=== PATIENT | male | born 1985 | race Hispanic/Latino ===

== ENCOUNTER 2016-12-29 09:58 | Emergency (ER) | payer OTHER ==
[~2016-12-29] VITALS: Ht 180.3 cm; Wt 136.1 kg
[~2016-12-29 09:58] MED LIST: NS 1000ML 1,000 ML ONE
--- NOTE | 2016-12-29 10:00 | NUR ---
arrival PATIENT ARRIVED TO [facility] WITH [facility] FROM [facility]. PATIENT WAS ATTEMPTED TO CHANGE CHEMICALS, PER PATIENT A VERY SMALL AMOUNT OF CHEM-AQUA 75084 SPLASHED IN HIS LEFT EYE, HE THEN BEGAN TO FLUSH WITH WATER THEN WAS BROUGHT TO ED FOR FURTHER EVAL, PATIENT DENIES ANY VISUAL DISTURBANCE, VISION IS CLEAR ON ASSESSMENT, JUST REDNESS AND IRRITATION NOTED.
--- NOTE | 2016-12-29 10:10 | NUR ---
EYE MEHDI LENSE PLACED, LEFT EYE BEING IRRIGATED WITH NORMAL SALINE AT THIS TIME, WILL CALL [facility] FOR FURTHER INSTRUCTIONS.
--- NOTE | 2016-12-29 10:16 | ER.PDOC ---
General Chief Complaint: Eye Problems Stated Complaint: CHEMICAL SPLASH TRAVEL OUT OF US: No Time seen by MD: 10:11 Source: patient Exam Limitations: no limitations History of Present Illness Initial Comments splash L eye chemical irrigated with water at sight ns nga lens here Timing/Duration: 1/2 hour Severity: mild Associated Symptoms: denies symptoms Allergies: Coded Allergies: No Known Allergies (Unverified , 12/29/16) Home Meds Unable to Obtain Active Prescriptions or Reported Meds Past Medical History Medical History: hypertension Family History Significant Family History: no pertinent family hx Social History Smoking: non-smoker Alcohol Use: none Drug Use: none Review of Systems EENTM: eye pain, denies blurred vision Respiratory: no symptoms reported Cardiovascular: no symptoms reported Gastrointestinal: no symptoms reported Genitourinary: no symptoms reported Musculoskeletal: no symptoms reported Skin: no symptoms reported, denies rash Psychiatric/Neurological: no symptoms reported Hematologic/Lymphatic: no symptoms reported Immunological/Allergic: no symptoms reported All Other Systems: Reviewed and Negative Physical Exam EENT: other (injected Linda eye) Neck: Non-Tender, Full Range of Motion Respiratory: chest non-tender, lungs clear CVS: reg rate & rhythm, no murmur Gastrointestinal: Normal Bowel Sounds, No Organomegaly Back: Normal Inspection, No CVA Tenderness Extremities: Normal Range of Motion, Non-Tender Neurologic/Psychiatric: merchandising representative II-XII NML as Tested, Sensory Deficit Skin: Normal Color Lymphatic: No Adenopathy Progress Progress irigated with liter NS via nga lens 1107 states feels much better no ph paper in this ed or hospital Departure Time of Disposition: 11:07 Disposition: 01 HOME, SELF-CARE Impression: Primary Impression: Alkaline chemical burn of cornea and conjunctival sac Condition: Stable Scripts Unable to Obtain Active Prescriptions or Reported Meds MARK ARREOLA Dr., MD Dec 29, 2016 10:16
--- NOTE | 2016-12-29 10:18 | NUR ---
[facility]ISON [facility]OL CALLED AND SPOKE WITH JOSE MANUEL HOGAN AT [facility], STATES CHEMICAL IS VERY IRRITANT TO THE EYE, FLUSH WITH NORMAL SALINE AND CHECK PH (NEEDS TO BE BETWEEN 7-8), EYE EXAM TO CHECK FOR ABRASIONS, OPTHAMOLOGIST CONSULT NEEDED, AND CALL THEM WITH ANY OTHER QUESTIONS NEEDED.
[2016-12-29] MEDS ORDERED: NS 1000ML 1,000 ML ONE (10:28)
--- NOTE | 2016-12-29 10:59 | NUR ---
2 liters eye flushed with 2 liters of normal saline, patient tolerated well, awaiting ph strip to evaluated level. patient denies pain at this time.
[2016-12-29 11:28] VITALS: BP 142/68
== END 2016-12-29 11:23 | disposition home or self-care (01) ==
LOC: ER 09:58
DX: T54.3X1A Toxic effect of corrosive alkalis and alkali-like substances, accidental (unintentional), initial encounter (principal); T26.62XA Corrosion of cornea and conjunctival sac, left eye, initial encounter; I10 Essential (primary) hypertension; Y93.89 Activity, other specified; Y92.89 Other specified places as the place of occurrence of the external cause; Y99.8 Other external cause status
CPT/HCPCS: 99284; J7030 ×2